=== PATIENT | female | born 1980 | race Caucasian/White ===

== ENCOUNTER 2023-05-17 08:50 | Day surgery (SDC) | payer BC ==
[~2023-05-17 08:50] MED LIST: Lactated Ringers 1,000 ML IV SCH; Sodium Chloride 0.9% 10 ML Syringe FLUSH PRN; Sodium Chloride 0.9% 2.5 ML Syringe FLUSH PRN; Sodium Chloride 0.9% 20 ML SDV IV PRN
[2023-05-17] MEDS ORDERED: Propofol 200 MG/20 ML SDV ONE ×7 (10:18→11:18)
[2023-05-17] MEDS ORDERED: Lidocaine 2% 5 ML SDV ONE (10:18)
== END 2023-05-17 12:05 | disposition home or self-care (01) ==
LOC: MW.SDS 08:50
PROVIDERS: ATTEND Surgery
DX: R19.4 Change in bowel habit (principal); Q40.1 Congenital hiatus hernia; K21.9 Gastro-esophageal reflux disease without esophagitis; K29.70 Gastritis, unspecified, without bleeding; K63.5 Polyp of colon; D12.3 Benign neoplasm of transverse colon; F17.200 Nicotine dependence, unspecified, uncomplicated; E66.9 Obesity, unspecified; Z68.39 Body mass index [BMI] 39.0-39.9, adult; Z79.51 Long term (current) use of inhaled steroids; Z79.899 Other long term (current) drug therapy; Z88.8 Allergy status to other drugs, medicaments and biological substances
CPT/HCPCS: 43235; 45378; 81025; J2704; J7120; J3490